=== PATIENT | male | born 1945 | race Caucasian/White ===

== ENCOUNTER → 2016-12-22 | Outpatient (CLI) | payer BC ==
[~2016-12-22] MED LIST: ASPCH81 PO; GLUCTAB7 PO; MULT-506 PO
== END | disposition home or self-care (01) ==
LOC: C.LAB 08:02
PROVIDERS: ATTEND Urology
DX: Z87.440 Personal history of urinary (tract) infections (principal)

== ENCOUNTER → 2017-05-13 | Outpatient (CLI) | payer BC ==
[2017-05-13 09:36] LABS: BASO % 0.3 %; BASO ABS # 0.01 K/uL (0-0.2); COMPLETE YES; EOS % 1.5 %; HEMATOCRIT 42.5 % (42-52); LYMPH % 24.8 %; LYMPH ABS # 0.81 K/uL (1.2-3.4); MEAN CELL VOLUME 91.2 fL (80-100); MEAN CORPUSCULAR HEMOGLOBIN 30.7 pg (25-34); MEAN CORPUSCULAR HGB CONC 33.6 g/dl (32-36); MEAN PLATELET VOLUME 9.9 fL (7.4-10.4); MONO % 11.3 %; NEUT % 62.1 %; PLATELET COUNT 177 K/uL (130-400); RED BLOOD COUNT 4.66 M/uL (4.7-6.1); WHITE BLOOD COUNT 3.26 K/uL (4.8-10.8)
[2017-05-13 10:10] LABS: ALT/SGPT 23 U/L (12-78); BLOOD UREA NITROGEN 19 mg/dl (7-18); CALCIUM 8.7 mg/dl (8.5-10.1); CARBON DIOXIDE 30 mmol/L (21-32); CHLORIDE 107 mmol/L (98-107); CHOLESTEROL 187 mg/dl (0-200); GLUCOSE 92 mg/dl (70-99); POTASSIUM 4.4 mmol/L (3.5-5.1); SODIUM 141 mmol/L (136-145); TRIGLYCERIDES 77 mg/dl (0-150); VERY LOW DENSITY LIPOPROT CALC 15 mg/dl
[2017-05-13 10:19] LABS: ALB/GLOB RATIO 1.1 (0.9-2); ALKALINE PHOSPHATASE 69 U/L (45-117); AST/SGOT 16 U/L (15-37); CHOLESTEROL/HDL RATIO 4.9; HDL CHOLESTEROL 38 mg/dl; LDL CHOLESTEROL CALCULATED 134 mg/dl; THYROID STIMULATING HORMONE 0.062 uIu/ml (0.300-4.500)
== END | disposition home or self-care (01) ==
LOC: C.LAB 09:00
PROVIDERS: ATTEND Internal Medicine
DX: H91.90 Unspecified hearing loss, unspecified ear (principal); D72.819 Decreased white blood cell count, unspecified

== ENCOUNTER → 2017-05-15 | Outpatient (CLI) | payer BC | END | disposition home or self-care (01) | LOC: C.LAB 08:01 | PROVIDERS: ATTEND Internal Medicine | DX: R68.82 Decreased libido (principal) ==

== ENCOUNTER → 2017-07-03 | Outpatient (CLI) | payer BC ==
[2016-06-28 13:47] VITALS: BP 116/75; PULSE 71
[2017-07-03 13:56] VITALS: BP 119/76; PULSE 67; TEMP 36.3; O2SAT 95
--- NOTE | 2017-07-03 15:41 | Radiation Oncology Follow-Up ---
Radiation Oncology Follow-Up Date of Visit Jul 03, 2017. Reason For Visit Annual follow-up Radiation Completion Date 11/22/15 Diagnosis (1) Prostate cancer Status: Resolved Onset Date: 06/23/2015 Location: right lobe of the prostate Histology Subtype: adenocarcinoma Stage: ll Permanent Comment: Rising PSA, pretreatment PSA 5.2, clinical stage T1c Status post ultrasound biopsies revealing adenocarcinoma 06/23/2015 Emmanuelle grade 3+3 Prostate volume 25 mL Prostate density 0.208 Status post completion of radiation therapy utilizing IMRT/IGRT completed 2015 received 7740 cGy Last Edited By: Carolyn Barriga on Dec 28, 2015 16:38 History of Present Illness This is a 70-year-old gentleman who is referred to us for discussion of treatment options of radiation for his localized prostate cancer. The patient was found to have a mildly elevated PSA of 5.2. He underwent ultrasound-guided needle biopsies of his prostate gland on 06/23/2015. He was found to have a 25 cc gland with 3 course on right involved with Becker 3+3 adenocarcinoma consistent with a prostate primary. As noted, the patient was asymptomatic and is here to discuss his treatment options. At this point, he would be a T1c with low risk features. 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 Now 2 years ago, the patient received therapy in [place] utilizing stereotactic radiosurgury technique. He has been NAD from that and has had stabilization of his hearing. His hearing on the right is decreased but it has remained that way without progression. He had a pleasant experience and stress radiation. The patient though also had an uncle(in-law) with prostate cancer who underwent a resection and was left with urinary incontinence All options of treatment were reviewed with him. His ultimate decision was to have IMRT/IGRT. He did not require hormone suppression. Interim History He's been doing well over this past year. His urinary status is stable. Does not require any medications to help with urination. He gave an AUA score of 2. He completed expanded prostate cancer index composite for clinical practice and gave a score of 0 12 and urinary incontinence symptoms. He gave a score of 0 12 and urinary irritation symptoms. He gave a score of one of 12 bowel symptoms. He gave a score of 10 of 12 in sexual symptoms. He gave a score of 4 of 12 and hormonal vitality symptoms. His total was 15 of 60. We discussed the erectile dysfunction. She had seen Dr. Alvarez and had tried Viagra and Cialis. Neither of these medications helped with the erectile dysfunction. We discussed his symptoms of fatigue and feeling depressed. The feelings of depression are mainly seasonal. This occurs mostly during the wintertime when there are less chores that he needs to do around his house. He has reviewed the erectile dysfunction and feeling low with his primary care physician. Allergies Coded Allergies: Loratadine (Verified Allergy, Mild, Heart Palpitations , 07/14/15) Home Medications Scheduled Aspirin (Aspirin Tab-Chewable *), 81 MG PO DAILY Multivitamin (Multivitamin), 1 TAB PO DAILY Review of Systems Gastrointestinal: Symptoms: WNL GI Comments: Constipation at times - stool softener PRN Oral: Symptoms: No Problems Respiratory: Symptoms: WNL Urinary: Symptoms: Nocturia Comments: Nocturia x 1-2, See AUA & EPIC Skin: Symptoms: No Problems Physical Exam Vital Signs Date Time Temp Pulse Resp B/P (MAP) Pulse Ox O2 Delivery O2 Flow Rate FiO2 07/03/17 13:56 36.3 67 18 119/76 95 Pain: Patient Pain Scale: 0 - 10 Initial Pain Intensity: 0.0 Fatigue: None General Appearance: no apparent distress Eyes: normal inspection, EOMI ENT: normal ENT inspection, hearing grossly normal Respiratory/Chest: lungs clear, no respiratory distress, no accessory muscle use Cardiovascular: regular rate, rhythm, no gallop, no murmur Abdomen: non tender, soft, no organomegaly Anal / Rectum: Normal sphincter tone. No rectal masses and no rectal bleeding. Prostate is without nodules. Extremities: no pedal edema Neurologic/Psychiatric: no motor/sensory deficits, alert, normal mood/affect Skin: warm/dry Laboratory Studies Test 05/13/17 09:09 05/15/17 08:06 07/03/17 14:15 White Blood Count 3.26 K/uL (4.8-10.8) Red Blood Count 4.66 M/uL (4.7-6.1) Hemoglobin 14.3 g/dL (14.0-18.0) Hematocrit 42.5 % (42-52) Mean Corpuscular Volume 91.2 fL (80-100) Mean Corpuscular Hemoglobin 30.7 pg (25-34) Mean Corpuscular Hemoglobin Concent 33.6 g/dl (32-36) Platelet Count 177 K/uL (130-400) Mean Platelet Volume 9.9 fL (7.4-10.4) Neutrophils (%) (Auto) 62.1 % Lymphocytes (%) (Auto) 24.8 % Monocytes (%) (Auto) 11.3 % Eosinophils (%) (Auto) 1.5 % Basophils (%) (Auto) 0.3 % Neutrophils # (Auto) 2.02 K/uL (1.4-6.5) Lymphocytes # (Auto) 0.81 K/uL (1.2-3.4) Monocytes # (Auto) 0.37 K/uL (0.11-0.59) Eosinophils # (Auto) 0.05 K/uL (0-0.5) Basophils # (Auto) 0.01 K/uL (0-0.2) RDW Standard Deviation 42.9 fL (36.4-46.3) RDW Coefficient of Variation 12.9 % (11.5-14.5) Immature Granulocyte % (Auto) 0.0 % Immature Granulocyte # (Auto) 0.00 K/uL (0.00-0.02) Sodium Level 141 mmol/L (136-145) Potassium Level 4.4 mmol/L (3.5-5.1) Chloride Level 107 mmol/L (98-107) Carbon Dioxide Level 30 mmol/L (21-32) Anion Gap 4.0 mmol/L (3-11) Blood Urea Nitrogen 19 mg/dl (7-18) Creatinine 1.10 mg/dl (0.60-1.40) Estimated GFR () 79.0 Estimated GFR (Non- 68.1 BUN/Creatinine Ratio 17.0 (10-20) Random Glucose 92 mg/dl (70-99) Calcium Level 8.7 mg/dl (8.5-10.1) Total Bilirubin 0.7 mg/dl (0.2-1) Aspartate Amino Transferase (AST) 16 U/L (15-37) Alanine Aminotransferase (ALT) 23 U/L (12-78) Alkaline Phosphatase 69 U/L (45-117) Total Protein 7.0 gm/dl (6.4-8.2) Albumin 3.7 gm/dl (3.4-5.0) Globulin 3.3 gm/dl (2.5-4.0) Albumin/Globulin Ratio 1.1 (0.9-2) Triglycerides Level 77 mg/dl (0-150) Cholesterol Level 187 mg/dl (0-200) HDL Cholesterol 38 mg/dl LDL Cholesterol, Calculated 134 mg/dl VLDL Cholesterol, Calculated 15 mg/dl Cholesterol/HDL Ratio 4.9 Thyroid Stimulating Hormone (TSH) 0.062 uIu/ml (0.300-4.500) Free Thyroxine 1.01 ng/dl (0.80-1.60) Follicle Stimulating Hormone 9.61 IU/L Luteinizing Hormone 4.39 IU/L Total Testosterone 423 ng/dL (250-1100) Free Testosterone 45.3 pg/mL (35.0-155.0) Prostate Specific Antigen 0.144 ng/ml (0.000-4.000) Assessment & Plan Plan: A PSA was drawn today prior to examination. He will be notified as to the results. Continue follow-up with his primary care physician in urology. We asked him to return to our office in 1 year. He may call if he has any questions or concerns in the interim. He may continue discuss the issues with erectile dysfunction with urology. He'll continue discuss the seasonal feelings of feeling low with his primary care physician. Total Time In Follow-Up I spent 20 minutes speaking to the patient performing examination. I spent 15 minutes reviewing information completing this note. Copy To Aj Moore M.D.; Davy Phelan MD
== END | disposition home or self-care (01) ==
LOC: C.ONC 13:52
PROVIDERS: ATTEND Physician Assistant Medical
DX: Z08 Encounter for follow-up examination after completed treatment for malignant neoplasm (principal); Z92.3 Personal history of irradiation; Z85.46 Personal history of malignant neoplasm of prostate

== ENCOUNTER → 2018-05-27 | Outpatient (CLI) | payer BC ==
[~2018-05-27] MED LIST changes: -GLUCTAB7 PO
[2018-05-27 09:30] LABS: BASO % 0.2 %; BASO ABS # 0.01 K/uL (0-0.2); EOS % 2.1 %; EOS ABS # 0.09 K/uL (0-0.5); HEMOGLOBIN 14.8 g/dL (14.0-18.0); LYMPH % 23.7 %; MEAN CELL VOLUME 92.2 fL (80-100); MEAN CORPUSCULAR HGB CONC 33.6 g/dl (32-36); MEAN PLATELET VOLUME 9.9 fL (7.4-10.4); MONO % 10.7 %; MONO ABS # 0.45 K/uL (0.11-0.59); NEUT % 63.3 %; NEUT ABS # 2.67 K/uL (1.4-6.5); PLATELET COUNT 171 K/uL (130-400); RED CELL DISTRIBUTION WIDTH CV 12.8 % (11.5-14.5); WHITE BLOOD COUNT 4.22 K/uL (4.8-10.8)
[2018-05-27 10:05] LABS: ALBUMIN 3.5 gm/dl (3.4-5.0); ALKALINE PHOSPHATASE 66 U/L (45-117); ALT/SGPT 26 U/L (12-78); AST/SGOT 16 U/L (15-37); BLOOD UREA NITROGEN 20 mg/dl (7-18); CALCIUM 8.6 mg/dl (8.5-10.1); CARBON DIOXIDE 26 mmol/L (21-32); CHOLESTEROL 214 mg/dl (0-200); CREATININE 1.12 mg/dl (0.60-1.40); GLUCOSE 95 mg/dl (70-99); LDL CHOLESTEROL CALCULATED 157 mg/dl; POTASSIUM 4.1 mmol/L (3.5-5.1); SODIUM 140 mmol/L (136-145); TOTAL PROTEIN 7.2 gm/dl (6.4-8.2)
== END | disposition home or self-care (01) ==
LOC: C.LAB 07:58
PROVIDERS: ATTEND Internal Medicine
DX: Z00.00 Encounter for general adult medical examination without abnormal findings (principal); E78.5 Hyperlipidemia, unspecified; D33.3 Benign neoplasm of cranial nerves; D72.819 Decreased white blood cell count, unspecified; C61 Malignant neoplasm of prostate; R79.89 Other specified abnormal findings of blood chemistry